=== PATIENT | female | born 1985 | race Caucasian/White ===

== ENCOUNTER 2017-02-06 21:33 | Emergency (ER) | payer OTHER ==
[2017-02-06 21:38] VITALS: BMI 30.5
[2017-02-06 21:45] VITALS: RESP 18; TEMP 98.2
--- NOTE | 2017-02-06 22:03 | ED PDOC ---
Arrival/HPI - General Chief Complaint: Dizziness/Lightheaded Time Seen by Provider: 02/06/17 21:46 Historian: Patient - History of Present Illness Narrative History of Present Illness (Text): 02/06/17 22:01 Quita Morton is a 31 year old female, with no significant past medical history , presents to the emergency department complaining of 1 hour duration of left sided facial numbness. Also notes of pain to back of left ear. Denies any headache, dizziness, vision changes, chest pain, difficulty breathing, nausea, vomiting, urinary symptoms, or any other complaints at this time. Time/Duration: 1 hour Symptom Onset: Gradual Symptom Course: Unchanged Severity Level: Mild Activities at Onset: Light Past Medical History - Provider Review Nursing Documentation Reviewed: Yes - Infectious Disease Hx of Infectious Diseases: None - Tetanus Immunization Tetanus Immunization: Unknown - Past Medical History Past Medical History: No Previous - Musculoskeletal/Rheumatological Hx Falls: No - Psychiatric Hx Depression: No Hx Substance Use: No - Surgical History Other/Comment: has 3 vaginal births - Anesthesia Hx Anesthesia: No - Suicidal Assessment Feels Threatened In Home Enviroment: No Family/Social History - Physician Review Nursing Documentation Reviewed: Yes Family/Social History: No Known Family HX Smoking Status: Never Smoked Hx Alcohol Use: No Hx Substance Use: No Hx Substance Use Treatment: No Allergies/Home Meds Allergies/Adverse Reactions: Allergies No Known Allergies Allergy (Verified 02/21/16 01:32) Review of Systems - Physician Review All systems were reviewed & negative as marked: Yes - Review of Systems Constitutional: Normal. absent: Fatigue, Fevers Respiratory: Normal. absent: SOB, Cough, Sputum Cardiovascular: Normal. absent: Chest Pain, Palpitations Gastrointestinal: Normal. absent: Abdominal Pain, Diarrhea, Nausea, Vomiting Neurological: Other (left facial numbness and pain to back of left ear. ). absent: Headache, Dizziness Psychiatric: Normal Physical Exam Vital Signs Reviewed: Yes Vital Signs Temp Pulse Resp BP Pulse Ox 02/07/17 01:43 59 L 18 95/62 L 97 02/06/17 23:48 72 18 92/61 L 100 02/06/17 21:44 98.2 F 68 18 119/78 99 Temperature: Afebrile Blood Pressure: Normal Pulse: Regular Respiratory Rate: Normal Appearance: Positive for: Well-Appearing, Non-Toxic, Comfortable Pain Distress: None Mental Status: Positive for: Alert and Oriented X 3 - Systems Exam Head: Present: Atraumatic, Normocephalic Pupils: Present: PERRL Extroacular Muscles: Present: EOMI Conjunctiva: Present: Normal Ears: Present: NORMAL TM, Normal Canal. No: Erythema, TM Bulging, Fluid Mouth: Present: Moist Mucous Membranes. No: Dry Neck: Present: Normal Range of Motion Respiratory/Chest: Present: Clear to Auscultation, Good Air Exchange. No: Respiratory Distress, Accessory Muscle Use Cardiovascular: Present: Regular Rate and Rhythm, Normal S1, S2. No: Murmurs Abdomen: Present: Normal Bowel Sounds. No: Tenderness, Distention, Peritoneal Signs Upper Extremity: Present: Normal Inspection. No: Cyanosis, Edema Lower Extremity: Present: Normal Inspection. No: Edema Neurological: Present: GCS=15, Speech Normal, Motor Func Grossly Intact, Normal Sensory Function, Other (exam consistent with early bells palsy facial nerve ) Skin: Present: Warm, Dry, Normal Color. No: Rashes Psychiatric: Present: Alert, Oriented x 3, Normal Insight, Normal Concentration Medical Decision Making ED Course and Treatment: 02/06/17 22:04 Impression: A 31 year old female who presents to the emergency department complaining of 1 hour duration of left sided facial numbness and pain to back of left ear. Plan: -- CT Head -- Labs -- POC urine test -- Reassess and disposition Progress Notes: 02/07/17 01:18 CT Head results reviewed: FINDINGS: Brain: No acute intracranial hemorrhage. No significant white matter disease. No edema. Ventricles: No significant ventriculomegaly. Bones: No acute displaced fracture. Sinuses: Unremarkable as visualized. No acute sinusitis. Mastoid air cells: Unremarkable as visualized. No mastoid effusion. IMPRESSION: No acute intracranial hemorrhage, or suspicious mass effect. Dictated and Authenticated by: Ruth Perez MD On reevaluation the patient feels better and is in no acute distress. I have discussed the results and plan with the patient, who expresses understanding. Patient given the opportunity to ask question, all questions were answered and there is agreement with the plan to discharge the patient home. Patient is stable for discharge. Patient was instructed to follow up with physician/clinic in 1-2 days or return if symptoms persist/worsen or new concerning symptoms arise. - Lab Interpretations Lab Results: 02/06/17 22:48 02/06/17 22:48 Lab Results 02/06/17 22:48: Lyme Disease Screen <0.90 02/06/17 22:48: Sodium 138, Potassium 3.5 L, Chloride 101, Carbon Dioxide 28, Anion Gap 13, BUN 15, Creatinine 0.8, Est GFR ( Amer) > 60, Est GFR (Non- Af Amer) > 60, Random Glucose 103, Calcium 8.7, Total Bilirubin 0.6, AST 26, ALT 36, Alkaline Phosphatase 90, Total Protein 6.9, Albumin 3.8, Globulin 3.1, Albumin/Globulin Ratio 1.2 02/06/17 22:48: WBC 8.0, RBC 4.42, Hgb 13.1, Hct 38.1, MCV 86.2, MCH 29.6, MCHC 34.4, RDW 12.6, Plt Count 202, MPV 10.6, Gran % 46.3 L, Lymph % (Auto) 47.6 H, [place] % (Auto) 4.4, Eos % (Auto) 1.5, Baso % (Auto) 0.2, Gran # 3.72, Lymph # 3.8 H, [place] # 0.4, Eos # 0.1, Baso # 0.02 I have reviewed the lab results: Yes - RAD Interpretation Radiology Orders: 02/06/17 21:56 HEAD W/O CONTRAST [CT] Stat Score Caller: Radiologist - Medication Orders Current Medication Orders: Discontinued Medications Potassium Chloride (K-Dur 20 Meq Er Tab) 20 meq PO ONCE ONE Stop: 02/06/17 23:10 Last Admin: 02/06/17 23:16 Dose: 20 meq Prednisone (Prednisone Tab) 60 mg PO ONCE STA Stop: 02/07/17 01:34 - Scribe Statement The provider has reviewed the documentation as recorded by the Kayla Brown Provider Attestation: All medical record entries made by the Kayla were at my direction and personally dictated by me. I have reviewed the chart and agree that the record accurately reflects my personal performance of the history, physical exam, medical decision making, and the department course for this patient. I have also personally directed, reviewed, and agree with the discharge instructions and disposition. Disposition/Present on Arrival - Present on Arrival Any Indicators Present on Arrival: No History of DVT/PE: No History of Uncontrolled Diabetes: No Urinary Catheter: No History of Decub. Ulcer: No History Surgical Site Infection Following: None - Disposition Have Diagnosis and Disposition been Completed?: Yes Diagnosis: Negrete's palsy Disposition: HOME/ ROUTINE Disposition Time: 01:50 Condition: GOOD Discharge Instructions (ExitCare): Negrete Palsy (ED) Print Language: LITHUANIAN Prescriptions: predniSONE [predniSONE Tab] 20 mg PO TID #15 tab Referrals: Shaik Godwin MD [Primary Care Provider] - Follow up with primary Jose Eduardo Escobar MD [Staff Provider] - Follow up with primary
[2017-02-06 22:53] LABS: ADD MANUAL DIFF? NO
[2017-02-06 22:56] LABS: BASO # 0.02 K/mm3 (0.0-2.0); BASO % 0.2 % (0.0-3.0); EOS # 0.1 (0.0-0.7); EOS % 1.5 % (1.5-5.0); GRAN # 3.72 (1.4-6.5); GRAN % 46.3 % (50.0-68.0); HEMATOCRIT 38.1 % (36.0-48.0); LYMPH # 3.8 (1.2-3.4); LYMPH % 47.6 % (22.0-35.0); MEAN CELL VOLUME 86.2 fL (80.0-105.0); MEAN CORPUSCULAR HEMOGLOBIN 29.6 pg (25.0-35.0); MEAN CORPUSCULAR HGB CONC 34.4 g/dl (31.0-37.0); MEAN PLATELET VOLUME 10.6 fl (7.0-11.0); MONO # 0.4 (0.1-0.6); MONO % 4.4 % (1.0-6.0); PLATELET COUNT 202 10^3/uL (120.0-450.0); RED CELL DISTRIBUTION WIDTH 12.6 % (11.5-14.5)
[2017-02-06 23:08] LABS: ALB/GLOB RATIO 1.2 (1.1-1.8); ALKALINE PHOSPHATASE 90 U/L (38-133); ALT/SGPT 36 U/L (7-56); AST/SGOT 26 U/L (15-39); BILIRUBIN,TOTAL 0.6 mg/dL (0.2-1.3); BLOOD UREA NITROGEN 15 mg/dL (7-21); CALCIUM 8.7 mg/dL (8.4-10.5); CARBON DIOXIDE 28 mmol/L (21-33); CHLORIDE 101 mmol/L (98-107); GFR AFRICAN-AMERICAN > 60; GLUCOSE,RANDOM 103 mg/dL (70-110); POTASSIUM 3.5 mmol/L (3.6-5.0); SODIUM 138 mmol/L (132-148); TOTAL PROTEIN 6.9 g/dL (5.8-8.3)
[2017-02-06] MEDS ORDERED: Potassium Chloride 20 mEq ER Tab PO ONE (23:09)
--- NOTE | 2017-02-06 23:37 | CT ---
EXAM: CT Head Without Intravenous Contrast CLINICAL HISTORY: 31 years old, female; Signs and symptoms; Numbness / parasthesia; Bilateral; Additional info: Facial numbness TECHNIQUE: Axial computed tomography images of the head/brain without intravenous contrast. This CT exam was performed using one or more of the following dose reduction techniques: automated exposure control, adjustment of the mA and/or kV according to patient size, and/or use of iterative reconstruction technique. COMPARISON: No relevant prior studies available. FINDINGS: Brain: No acute intracranial hemorrhage. No significant white matter disease. No edema. Ventricles: No significant ventriculomegaly. Bones: No acute displaced fracture. Sinuses: Unremarkable as visualized. No acute sinusitis. Mastoid air cells: Unremarkable as visualized. No mastoid effusion. IMPRESSION: No acute intracranial hemorrhage, or suspicious mass effect.
[2017-02-07 01:44] VITALS: BP 95/62; PULSE 59; O2SAT 97
[2017-02-08 05:13] LABS: LYME DISEASE SCREEN <0.90 index
== END 2017-02-07 01:50 | disposition home or self-care (01) ==
LOC: ED 21:33
DX: G51.0 Bell's palsy (principal)

== ENCOUNTER 2017-03-12 21:33 | Emergency (ER) | payer OTHER ==
--- NOTE | 2017-03-12 22:20 | ED PDOC ---
Arrival/HPI <Saurabh Haider - Last Filed: 03/12/17 23:01> - General Historian: Patient - History of Present Illness Time/Duration: Other (One-day) Symptom Onset: Gradual Symptom Course: Worsening Quality: Stabbing, Burning Severity Level: 4 <Martha Agrawal - Last Filed: 03/13/17 00:32> - General Chief Complaint: Female Genitourinary Time Seen by Provider: 03/12/17 21:34 - History of Present Illness Narrative History of Present Illness (Text): 03/12/17 22:18 31-year-old female presents today with a one-day history of dysuria. Patient states she started this morning with slight burning with urination. Patient states throughout the day she has been having increasing pain as she urinates. Patient states she is also noticed some blood in the urine. She denies abdominal pain. No nausea or vomiting. Denies fevers or chills. Denies vaginal bleeding or vaginal discharge. Patient states her last period was 3 weeks ago. Patient states she took an amoxicillin at home that was given by her father. No medications have been taken for pain. No other complaints patient denies prior history of UTI. (Martha Agrawal) Past Medical History - Provider Review Nursing Documentation Reviewed: Yes - Travel History Have you recently traveled outside [place] w/in the past 3 mons?: No - Infectious Disease Hx of Infectious Diseases: None - Tetanus Immunization Tetanus Immunization: Unknown - Past Medical History Past Medical History: No Previous - Musculoskeletal/Rheumatological Hx Falls: No - Psychiatric Hx Depression: No Hx Substance Use: No - Surgical History Other/Comment: has 3 vaginal births - Anesthesia Hx Anesthesia: No - Suicidal Assessment Feels Threatened In Home Enviroment: No <Martha Agrawal - Last Filed: 03/13/17 00:32> Family/Social History - Physician Review Nursing Documentation Reviewed: Yes Family/Social History: Unknown Family HX Smoking Status: Never Smoked Hx Alcohol Use: No Hx Substance Use: No Hx Substance Use Treatment: No <Martha Agrawal - Last Filed: 03/13/17 00:32> Allergies/Home Meds <Saurabh Haider - Last Filed: 03/12/17 23:01> <Martha Agrawal - Last Filed: 03/13/17 00:32> Allergies/Adverse Reactions: Allergies No Known Allergies Allergy (Verified 02/21/16 01:32) Review of Systems - Review of Systems Constitutional: absent: Fatigue, Fevers Respiratory: absent: SOB, Cough Cardiovascular: absent: Chest Pain Gastrointestinal: absent: Abdominal Pain, Nausea, Vomiting Genitourinary Female: Dysuria, Hematuria. absent: Frequency, Vaginal Bleeding, Vaginal Discharge Musculoskeletal: absent: Arthralgias, Back Pain, Neck Pain Skin: absent: Rash, Pruritis Neurological: absent: Headache, Dizziness Psychiatric: absent: Anxiety, Depression <Martha Agrawal - Last Filed: 03/13/17 00:32> Physical Exam Vital Signs Reviewed: Yes Temperature: Afebrile Blood Pressure: Normal Pulse: Regular Respiratory Rate: Normal Appearance: Positive for: Well-Appearing, Non-Toxic, Comfortable Pain Distress: None Mental Status: Positive for: Alert and Oriented X 3 - Systems Exam Head: Present: Atraumatic Mouth: Present: Moist Mucous Membranes Respiratory/Chest: Present: Clear to Auscultation Cardiovascular: Present: Regular Rate and Rhythm Abdomen: Present: Tenderness (Minimal suprapubic tenderness), Normal Bowel Sounds. No: Distention, Peritoneal Signs, Rebound, Guarding Back: Present: Normal Inspection. No: CVA Tenderness, Midline Tenderness, Paraspinal Tenderness Neurological: Present: GCS=15, Speech Normal Skin: Present: Warm, Dry, Normal Color. No: Rashes Psychiatric: Present: Alert, Oriented x 3 <Martha Agrawal - Last Filed: 03/13/17 00:32> Vital Signs Temp Pulse Resp BP Pulse Ox 03/12/17 21:33 97.9 F 62 16 111/79 99 Medical Decision Making <Saurabh Haider - Last Filed: 03/12/17 23:01> <Martha Agrawal - Last Filed: 03/13/17 00:32> ED Course and Treatment: 03/12/17 22:20 Patient is nontoxic well-appearing in no distress with stable vital signs tylenol, Pyridium, macrobid Urinalysis: + bacteria, + wbcs, + rbcs Urine culture: pending advised follow up with the primary care physician within the next 2 days. advised immediate return if symptoms worsen,persist or if new symptoms develop. Impression: Urinary tract infection Motrin every 6 hours as needed for pain macrobid; 1 tablet twice daily x 10 days Pyridium one tablet twice daily x3 days Followup with primary care physician within the next 2 days Follow up with the urologist for the next 2 days Return if symptoms worsen persist or if new symptoms develop (Martha Agrawal) - Lab Interpretations Lab Results: Lab Results 03/12/17 22:54: Urine Color Yellow, Urine Appearance Cloudy, Urine pH 7.5, Ur Specific [place] 1.020, Urine Protein 30 H, Urine Glucose (UA) Negative, Urine Ketones Negative, Urine Blood Moderate H, Urine Nitrate Negative, Urine Bilirubin Negative, Urine Urobilinogen 0.2, Ur Leukocyte Esterase Moderate H, Urine RBC 2 - 5, Urine WBC 25 - 30, Ur Epithelial Cells 1 - 3, Urine Bacteria Occ, Urine HCG, Qual Negative - Medication Orders Current Medication Orders: Discontinued Medications Acetaminophen (Tylenol 325mg Tab) 975 mg PO STAT STA Stop: 03/12/17 22:18 Last Admin: 03/12/17 23:36 Dose: 975 mg Nitrofurantoin Macrocrystals (Macrobid) 100 mg PO STAT STA Stop: 03/13/17 00:02 Phenazopyridine HCl (Pyridium) 200 mg PO STAT STA Stop: 03/13/17 00:02 - PA / CLASSIFIER OPERATOR / Resident Statement SHELLY has reviewed & agrees with the documentation as recorded. SHELLY has examined the patient and agrees with the treatment plan. <Saurabh Haider - Last Filed: 03/12/17 23:01> Disposition/Present on Arrival <Saurabh Haider - Last Filed: 03/12/17 23:01> - Present on Arrival Any Indicators Present on Arrival: No History of DVT/PE: No History of Uncontrolled Diabetes: No Urinary Catheter: No History of Decub. Ulcer: No History Surgical Site Infection Following: None - Disposition Have Diagnosis and Disposition been Completed?: Yes Disposition Time: 00:29 Patient Plan: Discharge <Martha Agrawal - Last Filed: 03/13/17 00:32> - Disposition Diagnosis: Urinary tract infection Disposition: HOME/ ROUTINE Condition: GOOD Discharge Instructions (ExitCare): Urinary Tract Infection in Women (ED) Additional Instructions: Motrin every 6 hours as needed for pain macrobid; 1 tablet twice daily x 10 days Pyridium one tablet twice daily x3 days Followup with primary care physician within the next 2 days Follow up with the urologist for the next 2 days Return if symptoms worsen persist or if new symptoms develop Prescriptions: Ibuprofen [Motrin] 600 mg PO Q6H PRN #20 tab PRN Reason: pain/fever reduction Nitrofurantoin Macrocrystals [Macrobid] 100 mg PO BID #20 cap Phenazopyridine [Phenazopyridine HCl] 200 mg PO BID #6 tab Referrals: Delonte Bustos MD [Staff Provider] - [place] up [place] [facility] [place] - Follow up with primary Chad Dudley MD [Staff Provider] - Follow up with primary Forms: WORK NOTE
[2017-03-12 23:16] VITALS: BMI 27.8
[2017-03-12 23:37] LABS: PH,URINE 7.5 (4.7-8.0); URINE BILIRUBIN NEGATIVE (NEGATIVE); URINE BLOOD MODERATE (NEGATIVE); URINE GLUCOSE (UA) NEGATIVE (NEGATIVE); URINE KETONE NEGATIVE (NEGATIVE); URINE LEUKOCYTE ESTERASE MODERATE Leu/uL (NEGATIVE); URINE PROTEIN 30 mg/dL (<30 mg/dL); URINE UROBILINOGEN 0.2 E.U./dL (<1 E.U./dL)
[2017-03-12 23:49] LABS: URINE APPEARANCE CLOUDY (CLEAR); URINE COLOR YELLOW (YELLOW)
[2017-03-13 00:09] LABS: URINE BACTERIA OCC (NEG); URINE WBC 25 - 30 /hpf (0-6)
[2017-03-13 00:53] VITALS: BP 97/63; PULSE 74; RESP 18; TEMP 98; O2SAT 100
== END 2017-03-13 00:53 | disposition home or self-care (01) ==
LOC: ED 21:33
DX: N39.0 Urinary tract infection, site not specified (principal)

== ENCOUNTER 2017-03-27 23:34 | Emergency (ER) | payer OTHER ==
[2017-03-27 23:35] VITALS: BMI 27.8
[2017-03-28 00:24] VITALS: TEMP 98.2
--- NOTE | 2017-03-28 00:28 | ED PDOC ---
Arrival/HPI - General Time Seen by Provider: 03/27/17 23:43 Historian: Patient - History of Present Illness Narrative History of Present Illness (Text): 03/28/17 00:24 Quita Morton is a 31 year old female, with no significant past medical history , presents to the emergency department for possible and transient abdominal cramps,none now. States she took a test yesterday which was positive. Patient took Plan B last week and states last menstrual period was in January. No vaginal bleeding or discharge. Denies any fever, chills, nausea, vomiting, diarrhea, urinary symptoms, or any other complaints at this time. Severity Level: Mild Activities at Onset: Light Past Medical History - Provider Review Nursing Documentation Reviewed: Yes - Infectious Disease Hx of Infectious Diseases: None - Tetanus Immunization Tetanus Immunization: Unknown - Past Medical History Past Medical History: No Previous - Musculoskeletal/Rheumatological Hx Falls: No - Psychiatric Hx Depression: No Hx Substance Use: No - Surgical History Other/Comment: has 3 vaginal births - Anesthesia Hx Anesthesia: No - Suicidal Assessment Feels Threatened In Home Enviroment: No Family/Social History - Physician Review Nursing Documentation Reviewed: Yes Family/Social History: No Known Family HX Smoking Status: Never Smoked Hx Alcohol Use: No Hx Substance Use: No Hx Substance Use Treatment: No Allergies/Home Meds Allergies/Adverse Reactions: Allergies No Known Allergies Allergy (Verified 03/28/17 00:18) Home Medications: Home Meds Medication Instructions Recorded Confirmed Unobtainable 03/28/17 03/28/17 Review of Systems - Physician Review All systems were reviewed & negative as marked: Yes - Review of Systems Constitutional: Normal. absent: Fatigue, Fevers Respiratory: Normal. absent: SOB, Cough Cardiovascular: Normal. absent: Chest Pain, Palpitations Gastrointestinal: Abdominal Pain. absent: Diarrhea, Nausea, Vomiting Genitourinary Female: Normal. absent: Dysuria, Frequency Skin: Normal Neurological: Normal. absent: Headache, Dizziness Psychiatric: Normal Physical Exam Vital Signs Reviewed: Yes Vital Signs Temp Pulse Resp BP Pulse Ox 03/28/17 00:19 98.2 F 66 18 104/55 L 100 Temperature: Afebrile Blood Pressure: Normal Pulse: Regular Respiratory Rate: Normal Appearance: Positive for: Well-Appearing, Non-Toxic, Comfortable Pain Distress: None Mental Status: Positive for: Alert and Oriented X 3 - Systems Exam Head: Present: Atraumatic, Normocephalic Pupils: Present: PERRL Extroacular Muscles: Present: EOMI Conjunctiva: Present: Normal Mouth: Present: Moist Mucous Membranes Neck: Present: Normal Range of Motion Respiratory/Chest: Present: Clear to Auscultation, Good Air Exchange. No: Respiratory Distress, Accessory Muscle Use Cardiovascular: Present: Regular Rate and Rhythm, Normal S1, S2. No: Murmurs Abdomen: Present: Normal Bowel Sounds. No: Tenderness, Distention, Peritoneal Signs, Rebound, Guarding Upper Extremity: Present: Normal Inspection. No: Cyanosis, Edema Lower Extremity: Present: Normal Inspection. No: Edema Neurological: Present: GCS=15, CN II-XII Intact, Speech Normal, Motor Func Grossly Intact, Normal Sensory Function Skin: Present: Warm, Dry, Normal Color. No: Rashes Psychiatric: Present: Alert, Oriented x 3, Normal Insight, Normal Concentration Medical Decision Making ED Course and Treatment: 03/28/17 00:30 Impression: A 31 year old female who presents to the ed for possible and abdominal cramps. Plan: -- Labs -- HCG -- Urinalysis Progress Notes: 03/28/17 04:04 EXAM: US , Transvaginal FINDINGS: Gestation: A single intrauterine gestational sac is identified with a mean gestational sac size of 8.6 mm, too small for dates. A yolk sac is present, well formed. Placenta/amniotic fluid: Cannot be adequately evaluated due to the early gestational age. Uterus/cervix: Increased in size measuring 11.0 x 4.5 x 6.4 cm. No myometrial mass. Ovaries: The bilateral ovaries are unremarkable in echogenicity and size. The right measures 2.5 x 2.0 x 1.9 cm. The left side measures 3.2 x 1.8 x 3.1. Free fluid: A small amount of free fluid is identified within the posterior cul- de-sac. IMPRESSION: Single intrauterine gestational sac, too small for dates. A small amount of free fluid within the posterior cul-de-sac. Dictated and Authenticated by: Ruth Perez MD 03/28/2017 3:24 AM Eastern Time ([place] & [place]) 03/28/17 04:21 On reevaluation the patient feels better and is in no acute distress. I have discussed the results and plan with the patient, who expresses understanding. Patient given the opportunity to ask question, all questions were answered and there is agreement with the plan to discharge the patient home. Patient is stable for discharge. Patient was instructed to follow up with physician/clinic in 1-2 days or return if symptoms persist/worsen or new concerning symptoms arise. - Lab Interpretations Lab Results: 03/28/17 00:47 03/28/17 00:47 Lab Results 03/28/17 00:47: Urine Color Yellow, Urine Appearance Clear, Urine pH 6.5, Ur Specific [place] 1.020, Urine Protein Negative, Urine Glucose (UA) Negative, Urine Ketones Negative, Urine Blood Negative, Urine Nitrate Negative, Urine Bilirubin Negative, Urine Urobilinogen 0.2, Ur Leukocyte Esterase Negative, Urine HCG, Qual Positive 03/28/17 00:47: WBC 6.5, RBC 4.03, Hgb 11.8 L, Hct 35.4 L, MCV 87.8, MCH 29.3, MCHC 33.3, RDW 13.2, Plt Count 181, MPV 10.1 03/28/17 00:47: Beta HCG, Quant 8307.10 H 03/28/17 00:47: Sodium 136, Potassium 3.4 L, Chloride 103, Carbon Dioxide 25, Anion Gap 11, BUN 13, Creatinine 0.7, Est GFR ( Amer) > 60, Est GFR (Non- Af Amer) > 60, Random Glucose 92, Calcium 8.7, Total Bilirubin 0.3, AST 17, ALT 31, Alkaline Phosphatase 74, Total Protein 6.8, Albumin 3.7, Globulin 3.0, Albumin/Globulin Ratio 1.2 - RAD Interpretation Radiology Orders: 03/28/17 01:54 OB TRANSVAGINAL [US] Stat - Scribe Statement The provider has reviewed the documentation as recorded by the Kayla Brown Provider Attestation: All medical record entries made by the Deniseibheavenly were at my direction and personally dictated by me. I have reviewed the chart and agree that the record accurately reflects my personal performance of the history, physical exam, medical decision making, and the department course for this patient. I have also personally directed, reviewed, and agree with the discharge instructions and disposition. Disposition/Present on Arrival - Present on Arrival Any Indicators Present on Arrival: No History of DVT/PE: No History of Uncontrolled Diabetes: No Urinary Catheter: No History Surgical Site Infection Following: None - Disposition Have Diagnosis and Disposition been Completed?: Yes Diagnosis: Early stage of Disposition: HOME/ ROUTINE Disposition Time: 04:15 Patient Plan: Discharge Patient Problems: Current Active Problems Problem Status Onset Early stage of Acute Condition: STABLE Discharge Instructions (ExitCare): (ED) Additional Instructions: Follow up with your bus repair supervisor this week Referrals: PCP,NO [Primary Care Provider] - Follow up with primary
[2017-03-28 01:07] LABS: HEMOGLOBIN 11.8 gm/dL (12.0-16.0); MEAN CELL VOLUME 87.8 fL (80.0-105.0); MEAN CORPUSCULAR HEMOGLOBIN 29.3 pg (25.0-35.0); MEAN CORPUSCULAR HGB CONC 33.3 g/dl (31.0-37.0); MEAN PLATELET VOLUME 10.1 fl (7.0-11.0); RBC 4.03 10^6/uL (3.5-6.1); RED CELL DISTRIBUTION WIDTH 13.2 % (11.5-14.5); WHITE BLOOD COUNT 6.5 10^3/ul (4.5-11.0)
[2017-03-28 01:08] LABS: PH,URINE 6.5 (4.7-8.0); URINE BILIRUBIN NEGATIVE (NEGATIVE); URINE BLOOD NEGATIVE (NEGATIVE); URINE GLUCOSE (UA) NEGATIVE (NEGATIVE); URINE LEUKOCYTE ESTERASE NEGATIVE Leu/uL (NEGATIVE); URINE NITRATE NEGATIVE (NEGATIVE); URINE PROTEIN NEGATIVE mg/dL (<30 mg/dL); URINE UROBILINOGEN 0.2 E.U./dL (<1 E.U./dL)
[2017-03-28 01:10] LABS: ALB/GLOB RATIO 1.2 (1.1-1.8); ALBUMIN 3.7 g/dL (3.0-4.8); ALT/SGPT 31 U/L (7-56); AST/SGOT 17 U/L (15-39); BLOOD UREA NITROGEN 13 mg/dL (7-21); CALCIUM 8.7 mg/dL (8.4-10.5); GFR AFRICAN-AMERICAN > 60; GFR NON-AFRICAN AMERICAN > 60
[2017-03-28 01:25] LABS: URINE APPEARANCE CLEAR (CLEAR); URINE COLOR YELLOW (YELLOW)
[2017-03-28 01:29] LABS: HCG,QUALITATIVE URINE POSITIVE (NEGATIVE)
--- NOTE | 2017-03-28 03:24 | US ---
EXAM: US , Transvaginal CLINICAL HISTORY: 31 years old, female; Pain; Other: Pelvic pain; Gestational age or lmp: 02/15/17; TECHNIQUE: Real-time transvaginal obstetrical ultrasound of the maternal pelvis and a first trimester with image documentation. Transvaginal imaging was used for better evaluation of the fetus and adnexa. COMPARISON: None FINDINGS: Gestation: A single intrauterine gestational sac is identified with a mean gestational sac size of 8.6 mm, too small for dates. A yolk sac is present, well formed. Placenta/amniotic fluid: Cannot be adequately evaluated due to the early gestational age. Uterus/cervix: Increased in size measuring 11.0 x 4.5 x 6.4 cm. No myometrial mass. Ovaries: The bilateral ovaries are unremarkable in echogenicity and size. The right measures 2.5 x 2.0 x 1.9 cm. The left side measures 3.2 x 1.8 x 3.1. Free fluid: A small amount of free fluid is identified within the posterior cul-de-sac. IMPRESSION: Single intrauterine gestational sac, too small for dates. A small amount of free fluid within the posterior cul-de-sac.
[2017-03-28 04:24] VITALS: BP 105/60; PULSE 74; RESP 14; O2SAT 98
== END 2017-03-28 04:25 | disposition home or self-care (01) ==
LOC: ED 23:34
DX: O26.891 Other specified pregnancy related conditions, first trimester (principal); Z3A.00 Weeks of gestation of pregnancy not specified

== ENCOUNTER 2017-06-19 12:48 | Emergency (ER) | payer OTHER ==
[2017-06-19 13:10] VITALS: RESP 18; TEMP 98.3; BMI 30.9
[2017-06-19] MEDS ORDERED: Albuterol-Ipratrop 3 mg / 0.5 (3 ml) UD IH STA (13:29)
--- NOTE | 2017-06-19 13:32 | ED PDOC ---
Arrival/HPI - General Historian: Patient - History of Present Illness Time/Duration: Other (2 weeks) Quality: Aching Context: Home - General Chief Complaint: ENT Problem Time Seen by Provider: 06/19/17 13:27 - History of Present Illness Narrative History of Present Illness (Text): 06/19/17 13:29 This 32 yo female who denies pmh, presents to this ED c/o cough x 2 weeks. Patient stated cough is persisting, non-productive, which is causing her to have right upper back pain when she cough. Patient denies recent travel, fever , sob, abdominal pain, urinary symptoms, dizziness, or abnormal gait. Son has similar symptoms. PERC negative for PE (Martinez,Nahim P) Past Medical History - Provider Review Nursing Documentation Reviewed: Yes - Infectious Disease Hx of Infectious Diseases: None - Tetanus Immunization Tetanus Immunization: Unknown - Past Medical History Past Medical History: No Previous - Musculoskeletal/Rheumatological Hx Falls: No - Psychiatric Hx Depression: No Hx Substance Use: No - Surgical History Other/Comment: has 3 vaginal births - Anesthesia Hx Anesthesia: No - Suicidal Assessment Feels Threatened In Home Enviroment: No Family/Social History - Physician Review Nursing Documentation Reviewed: Yes Family/Social History: Other Smoking Status: Never Smoked Hx Alcohol Use: No Hx Substance Use: No Hx Substance Use Treatment: No Allergies/Home Meds Allergies/Adverse Reactions: Allergies No Known Allergies Allergy (Verified 03/28/17 00:18) Home Medications: Home Meds Medication Instructions Recorded Confirmed Guaifen/Phenyleph/Acetaminophn 1 dose PO QID 06/19/17 06/19/17 [Mucinex Sinus-Max Severe Liq] Review of Systems - Review of Systems Constitutional: Normal. absent: Fatigue, Weight Change, Fevers Eyes: Normal ENT: Other (left ear pain) Respiratory: Cough. absent: SOB, Sputum, Wheezing Cardiovascular: Normal. absent: Chest Pain, Palpitations Gastrointestinal: Normal. absent: Abdominal Pain, Nausea, Vomiting Genitourinary Female: Normal Musculoskeletal: Other (right upper back pain) Skin: Normal Neurological: Normal Endocrine: Normal Hemo/Lymphatic: Normal Psychiatric: Normal Physical Exam Temperature: Afebrile Blood Pressure: Normal Pulse: Regular Respiratory Rate: Normal Appearance: Positive for: Well-Appearing, Non-Toxic, Comfortable Pain Distress: None Mental Status: Positive for: Alert and Oriented X 3 - Systems Exam Head: Present: Atraumatic, Normocephalic Pupils: Present: PERRL Extroacular Muscles: Present: EOMI. No: Entrapment Conjunctiva: Present: Normal. No: Injected Ears: Present: Normal, NORMAL TM, Normal Canal. No: Erythema, TM Bulging, Fluid , TM Perf Mouth: Present: Moist Mucous Membranes, Normal Lips, Normal Tounge, Normal Teeth. No: Drooling Pharnyx: Present: Normal. No: ERYTHEMA, EXUDATE, TONSILS ENLARGED, Peritonsilar Swelling, Uvular Deviation, Muffled/Hoarse Voice, Strider, Soft Palate/Uvular Edema Nose (External): Present: Atraumatic Nose (Internal): Present: Normal Inspection Neck: Present: Normal Range of Motion, Trachea Midline. No: Meningeal Signs, MIDLINE TENDERNESS, Paraspinal Tenderness, Lymphadenopathy Respiratory/Chest: Present: Clear to Auscultation, Good Air Exchange. No: Respiratory Distress, Accessory Muscle Use, Wheezes, Decreased Breath Sounds, Rales, Retracting, Rhonchi, Tachypneic Cardiovascular: Present: Regular Rate and Rhythm, Normal S1, S2. No: Murmurs Abdomen: Present: Normal Bowel Sounds. No: Tenderness, Distention, Peritoneal Signs Back: Present: Normal Inspection. No: CVA Tenderness, Midline Tenderness, Paraspinal Tenderness, Pain with Leg Raise, Decubitus Ulcer Upper Extremity: Present: Normal Inspection, Normal ROM, NORMAL PULSES, Neurovascularly Intact, Capillary Refill < 2s. No: Cyanosis, Edema Lower Extremity: Present: Normal Inspection, NORMAL PULSES, Normal ROM. No: Edema, CALF TENDERNESS Neurological: Present: GCS=15, CN II-XII Intact, Speech Normal, Motor Func Grossly Intact, Normal Sensory Function, Normal Cerebellar Funct, Norm Deep Tendon Reflexes, Gait Normal, Memory Normal Skin: Present: Warm, Dry, Normal Color. No: Rashes Psychiatric: Present: Alert, Oriented x 3, Normal Insight, Normal Concentration Vital Signs Temp Pulse Resp BP Pulse Ox 06/19/17 15:01 72 18 106/72 98 06/19/17 13:02 98.3 F 77 18 101/67 95 Medical Decision Making Re-evaluation Time: 14:27 Reassessment Condition: Re-examined, Improved ED Course and Treatment: 06/19/17 14:26 Re-evaluation. Patient feels better. Discussed results and plan with patient who expresses understanding. All questions answered and there is agreement with the plan to discharge home with instructions. Patient stable for discharge. Return if symptoms persist or worsen. I reviewed the risk involved taking Prednisone including AVN, glaucoma, DM, liver problems, allergic reaction. She understood risk when using Prednisone, and she still insist to have Prednisone (Calin Martinez) I was available for consultation during PA evaluation. The chart was reviewed by me, and I agree with disposition. The documented history was done by the physician verification manager. The documented physical exam was done by the physician verification manager. The documented procedures were done by the physician verification manager. (Margarito Dinero) - RAD Interpretation Narrative RAD Interpretations (Text): 06/19/17 14:27 Chest X-rays: NAD (Calin Martinez) Radiology Orders: 06/19/17 13:29 CHEST TWO VIEWS (PA/LAT) [RAD] Stat - Medication Orders Current Medication Orders: Discontinued Medications Albuterol/Ipratropium (Duoneb 3 Mg/0.5 Mg (3 Ml) Ud) 6 ml IH STAT STA Stop: 06/19/17 13:30 Last Admin: 06/19/17 13:42 Dose: 6 ml Disposition/Present on Arrival - Present on Arrival Any Indicators Present on Arrival: No History of DVT/PE: No History of Uncontrolled Diabetes: No Urinary Catheter: No History of Decub. Ulcer: No History Surgical Site Infection Following: None - Disposition Have Diagnosis and Disposition been Completed?: Yes Disposition Time: 14:50 Patient Plan: Discharge - Disposition Diagnosis: Acute bronchitis Disposition: HOME/ ROUTINE Condition: GOOD Discharge Instructions (ExitCare): Acute Bronchitis (ED) Additional Instructions: Call private doctor forllow up visit in 1-2 days. Take medication as instructed. Do not take Z-Pack , only if symptoms persist or worsen. return to emergency if symptoms worsen Prescriptions: Albuterol HFA [Ventolin HFA 90 mcg/actuation (8 g)] 2 puff IH [id number] PRN #120 puff PRN Reason: Wheezing Azithromycin [Z-Carlos Manuel] 250 mg PO DAILY #6 tab Prednisone [Deltasone] 60 mg PO DAILY #9 tablet Promethazine/Codeine [Codeine/Promethazine 10 MG/5 Ml-6.25 MG/5 Ml] 5 ml PO Q4H PRN #120 ml PRN Reason: Cough Referrals: PCP,NO [Primary Care Provider] - Follow up with primary [facility] [Outside] - Follow up with primary [facility] [Outside] - Follow up with primary Forms: Gyros (Greek), WORK NOTE
--- NOTE | 2017-06-19 14:38 | RAD ---
HISTORY: cough COMPARISON: No prior. TECHNIQUE: Chest PA and lateral FINDINGS: LUNGS: The interstitial markings are slightly increased and coarsened; rule out sequela of reactive/bronchial airway disease or viral illness. No focal consolidation. PLEURA: No significant pleural effusion identified. No pneumothorax apparent. CARDIOVASCULAR: Normal. OSSEOUS STRUCTURES: No significant abnormalities. VISUALIZED UPPER ABDOMEN: Normal. OTHER FINDINGS: None. IMPRESSION: Slightly increased coarse interstitial markings; rule out sequela of reactive/inflammatory airway disease or viral illness.
[2017-06-19 15:01] VITALS: BP 106/72; PULSE 72; O2SAT 98
== END 2017-06-19 15:01 | disposition home or self-care (01) ==
LOC: ED 12:48
DX: J20.9 Acute bronchitis, unspecified (principal)